=== PATIENT | male | born 1965 | race African-American/Black ===

== ENCOUNTER 2019-12-06 01:41 | Inpatient (IN) | payer MEDICAID ==
[~2019-12-06] VITALS: Ht 182.9 cm; Wt 85.0 kg
[~2019-12-06 01:41] MED LIST: FURO-151 PO
[2019-12-06] MEDS ORDERED: DEXTROSE 50% WATER 50ML SYRINGE IV ONE ×3 (02:31→04:30)
[2019-12-06] MEDS ORDERED: ONDANSETRON HCL 4MG/2ML INJ IV ONE (03:00)
[2019-12-06 03:13] LABS: HEMOGLOBIN 15.4 g/dL (14.0-18.0); MEAN CORPUSCULAR HEMOGLOBIN 29.2 pg (28.0-32.0); MEAN CORPUSCULAR VOLUME 92.8 fL (80.0-94.0); PLATELET 361 x1000/uL (130-400); RED BLOOD CELL COUNT 5.28 mill/uL (4.7-6.1); RED CELL DISTRIBUTION WIDTH 19.4 % (11.6-14.6)
[2019-12-06 03:14] LABS: CHLORIDE 99 mEq/L (98-107)
[2019-12-06] MEDS ORDERED: FUROSEMIDE 100MG/10ML VIAL IV SCH (04:24)
[2019-12-06] MEDS ORDERED: INSULIN REGULAR (HUMULIN R) 300UNITS/3ML IV SCH ×2 (04:30→06:28)
[2019-12-06] MEDS ORDERED: ALBUTEROL (0.083%) 2.5MG/3ML NEB HHN SCH (04:30)
[2019-12-06] MEDS ORDERED: SODIUM BICARBONATE 8.4% 1 MEQ/ML 50ML SYR IV SCH (04:30)
[2019-12-06] MEDS ORDERED: CALCIUM CHLORIDE 1GM/10ML SYR IV SCH (04:30)
[2019-12-06 11:26] LABS: AMYLASE 101 IU/L (25-115)
[2019-12-06] MEDS ORDERED: CLONIDINE 0.1MG TABLET PO PRN (15:00)
[2019-12-06] MEDS ORDERED: IPRATROPIUM/ALBUTEROL 0.5-3(2.5)MG/3ML NEB NEB PRN (15:00)
[2019-12-06] MEDS ORDERED: ONDANSETRON HCL 4MG/2ML INJ IV PRN (15:00)
[2019-12-06] MEDS ORDERED: CEFTRIAXONE 1 G PREMIX 50 ML IV NR (16:00)
[2019-12-06] MEDS ORDERED: FOLIC ACID 1 MG, THIAMINE HCL 100 MG, MVI, ADULT NO.1 10 ML in DEXTROSE 5% WATER 1,000 ML IV ONE ×4 (17:00)
[2019-12-06 19:05] LABS: CHLORIDE 99 mEq/L (98-107)
[2019-12-06 19:13] LABS: CREATINE KINASE 108 IU/L (39-308)
[2019-12-06 20:30] VITALS: BP 144/103
[2019-12-06] MEDS ORDERED: ENOXAPARIN 40MG/0.4ML SYR SUBCUT SCH (21:00)
[2019-12-06] MEDS ORDERED: ZOLPIDEM TARTRATE 5MG TABLET PO PRN (21:00)
[2019-12-06] MEDS: AMLODIPINE 5MG TABLET PO SCH (22:17)
[2019-12-06] MEDS ORDERED: LISI40TA4 PO (22:19)
[2019-12-06] MEDS ORDERED: ALBUTEROL INH (22:20)
[2019-12-06 22:30] VITALS: BP 144/103
[2019-12-07] VITALS: BP 138/91
[2019-12-07] MEDS ORDERED: DEXTROSE 50% WATER 50ML SYRINGE IV PRN (02:15)
[2019-12-07] MEDS: BLOOD SUGAR DIAGNOSTIC STRIP TEST SCH ×3 (06:19→16:40)
[2019-12-07] MEDS: INSULIN LISPRO 100 UNITS/ML SUBCUT SCH ×3 (06:54→16:40)
[2019-12-07 07:21] LABS: BASOPHILS % 0.7 % (0.0-2.0); EOSINOPHILS % 0.8 % (0.0-5.0); HEMATOCRIT. 40.4 % (42.0-52.0); HEMOGLOBIN. 13.2 g/dL (14.0-18.0); LYMPHOCYTES % 10.4 % (20.0-50.0); MEAN CORPUSCULAR HEMOGLOBIN 29.5 pg (28.0-32.0); MEAN CORPUSCULAR VOLUME 90.3 fL (80.0-94.0); MEAN PLATELET VOLUME 8.9 fl (7.4-10.4); MONOCYTES % 3.7 % (2.0-8.0); NEUTROPHILS % 84.4 % (40.0-76.0); PLATELET 258 x1000/uL (130-400); RED BLOOD CELL COUNT 4.47 mill/uL (4.7-6.1); RED CELL DISTRIBUTION WIDTH 19.7 % (11.6-14.6)
[2019-12-07 07:25] LABS: CHLORIDE 100 mEq/L (98-107)
[2019-12-07 07:32] LABS: CREATINE KINASE 82 IU/L (39-308)
[2019-12-07 08:00] VITALS: BP 137/105
[2019-12-07 08:52] LABS: CLARITY URINE CLEAR (CLEAR); COLOR URINE DK YELLOW (YELLOW); KETONES URINE NEGATIVE (NEGATIVE); LEUKOCYTE ESTERASE URINE NEGATIVE (NEGATIVE); NITRITE URINE NEGATIVE (NEGATIVE); OCCULT BLOOD URINE NEGATIVE (NEGATIVE); PH URINE 6.5 (4.5-8.0); PROTEIN URINE 1+ (NEGATIVE); SPECIFIC GRAVITY URINE 1.017 (1.005-1.030)
[2019-12-07 09:11] LABS: *AMPHETAMINES SCREEN URINE NEGATIVE (NEGATIVE); *BARBITURATES SCREEN URINE NEGATIVE (NEGATIVE)
[2019-12-07 09:12] LABS: *BENZODIAZEPINES SCREEN URINE NEGATIVE (NEGATIVE); *COCAINE SCREEN URINE PRESUMTIVE POSITIVE (NEGATIVE); METHADONE URINE SCREEN NEGATIVE (NEGATIVE); OPIATES URINE SCREEN NEGATIVE (NEGATIVE); PHENCYCLIDINE URINE SCREEN NEGATIVE (NEGATIVE)
[2019-12-07 09:13] LABS: CANNABINOID URINE SCREEN NEGATIVE (NEGATIVE)
[2019-12-07] MEDS: AMLODIPINE 5MG TABLET PO SCH (09:35)
[2019-12-07 12:00] VITALS: BP 103/74
[2019-12-07] MEDS ORDERED: INFLUENZA VIRUS VACCINE(AFLURIA) 0.5ML SYR IM ONE (12:00)
[2019-12-07] MEDS ORDERED: PNEUMOCOCCAL 23-VAL P-SAC VAC 0.5 ML IM ONE (12:00)
[2019-12-07] MEDS ORDERED: CEFTRIAXONE 1 G PREMIX 50 ML IV SCH (13:00)
[2019-12-07 16:00] VITALS: BP 144/89
[2019-12-07 17:23] VITALS: BP 144/89
[2019-12-08] MEDS ORDERED: CEFTRIAXONE 1,000 MG in DEXTROSE 5% WATER 50 ML IV SCH (13:00)
== END 2019-12-07 18:22 | disposition home or self-care (01) | DRG 469 ==
LOC: ER 01:41 → 5WST 04:35 → ENRESERV 19:31
PROVIDERS: ADMIT Internal Medicine; ATTEND Internal Medicine
DX: N17.0 Acute kidney failure with tubular necrosis (principal); E87.2 Acidosis; G90.8 Other disorders of autonomic nervous system; I11.0 Hypertensive heart disease with heart failure; I50.20 Unspecified systolic (congestive) heart failure; M62.82 Rhabdomyolysis; E87.1 Hypo-osmolality and hyponatremia; E87.5 Hyperkalemia; E16.2 Hypoglycemia, unspecified; R74.8 Abnormal levels of other serum enzymes; F12.10 Cannabis abuse, uncomplicated; F14.10 Cocaine abuse, uncomplicated; R74.0 Nonspecific elevation of levels of transaminase and lactic acid dehydrogenase [LDH]; K31.89 Other diseases of stomach and duodenum; Y90.9 Presence of alcohol in blood, level not specified; K29.70 Gastritis, unspecified, without bleeding; I16.0 Hypertensive urgency; Z79.84 Long term (current) use of oral hypoglycemic drugs; Z79.899 Other long term (current) drug therapy; Z71.41 Alcohol abuse counseling and surveillance of alcoholic; Z71.51 Drug abuse counseling and surveillance of drug abuser; F10.20 Alcohol dependence, uncomplicated
CPT/HCPCS: 36415; 74176; 76700; 80048; 80053; 80305; 81003; 82150; 82550; 82962; 83036; 83735; 85025; 85027; 90686; 90732; 93005; 93306; 93970; 96374; 99285; J0696; J1650; J1815; J1940; J2405; J3411; J3490; J7060; J7070

== ENCOUNTER 2019-12-28 15:58 | Inpatient (IN) | payer MEDICAID ==
[~2019-12-28] VITALS: Ht 182.9 cm; Wt 88.5 kg
[~2019-12-28 15:58] MED LIST changes: +ALBUTEROL INH; +LISI40TA4 PO
[2019-12-28] MEDS ORDERED: ONDANSETRON HCL 4MG/2ML INJ IV STA (16:48)
[2019-12-28] MEDS ORDERED: FAMOTIDINE 20MG/2ML VIAL IV STA (16:48)
[2019-12-28] MEDS ORDERED: MORPHINE SULFATE 4 MG/ML CPJ (NOT FOR IM USE) IV STA (16:48)
[2019-12-28 17:27] LABS: BASOPHILS % 0.5 % (0.0-2.0); EOSINOPHILS % 0.1 % (0.0-5.0); HEMATOCRIT. 44.5 % (42.0-52.0); HEMOGLOBIN. 14.7 g/dL (14.0-18.0); LYMPHOCYTES % 7.7 % (20.0-50.0); MEAN CORPUSCULAR HEMOGLOBIN 29.8 pg (28.0-32.0); MEAN CORPUSCULAR VOLUME 90.2 fL (80.0-94.0); MEAN PLATELET VOLUME 8.8 fl (7.4-10.4); MONOCYTES % 3.1 % (2.0-8.0); NEUTROPHILS % 88.6 % (40.0-76.0); PLATELET 281 x1000/uL (130-400); RED BLOOD CELL COUNT 4.93 mill/uL (4.7-6.1); RED CELL DISTRIBUTION WIDTH 21.5 % (11.6-14.6)
[2019-12-28 17:30] LABS: CHLORIDE 102 mEq/L (98-107)
[2019-12-28 17:33] LABS: INR 1.2; PROTHROMBIN TIME 12.7 sec (9.6-11.0)
[2019-12-28 17:34] LABS: ETHANOL BLOOD < 10 mg/dL
[2019-12-28 18:06] LABS: COLOR URINE ORANGE (YELLOW); KETONES URINE TRACE (NEGATIVE); LEUKOCYTE ESTERASE URINE 1+ (NEGATIVE); NITRITE URINE POSITIVE (NEGATIVE); OCCULT BLOOD URINE NEGATIVE (NEGATIVE); PH URINE 5.5 (4.5-8.0); PROTEIN URINE 3+ (NEGATIVE)
[2019-12-28 18:11] LABS: CLARITY URINE HAZY (CLEAR)
[2019-12-28 18:13] LABS: *AMPHETAMINES SCREEN URINE NEGATIVE (NEGATIVE)
[2019-12-28 18:14] LABS: *BARBITURATES SCREEN URINE NEGATIVE (NEGATIVE); *BENZODIAZEPINES SCREEN URINE NEGATIVE (NEGATIVE); *COCAINE SCREEN URINE PRESUMTIVE POSITIVE (NEGATIVE); METHADONE URINE SCREEN NEGATIVE (NEGATIVE); OPIATES URINE SCREEN PRESUMTIVE POSITIVE (NEGATIVE); PHENCYCLIDINE URINE SCREEN NEGATIVE (NEGATIVE)
[2019-12-28] MEDS ORDERED: PIPERACILLIN/TAZ 3.375G PREMIX 50 ML IV ONE (18:15)
[2019-12-28 18:16] LABS: CANNABINOID URINE SCREEN NEGATIVE (NEGATIVE)
[2019-12-28 21:30] VITALS: BP 147/110
[2019-12-28] MEDS ORDERED: MAGNESIUM/ALUMINUM HYDROXIDE/SIMETHICONE 30ML UDC PO PRN (21:30)
[2019-12-28] MEDS ORDERED: PIPERACILLIN/TAZ 3.375G PREMIX 50 ML IV SCH (21:30)
[2019-12-28] MEDS ORDERED: HYDROCODONE/ACETAMINOPHEN 5/325MG TABLET PO PRN (21:30)
[2019-12-28] MEDS ORDERED: ACETAMINOPHEN 325MG TABLET PO PRN (21:30)
[2019-12-28] MEDS ORDERED: CLONIDINE 0.1MG TABLET PO PRN (21:30)
[2019-12-28] MEDS ORDERED: IPRATROPIUM/ALBUTEROL 0.5-3(2.5)MG/3ML NEB NEB PRN (21:30)
[2019-12-28] MEDS ORDERED: DOCUSATE SODIUM 100MG CAPSULE PO PRN (21:30)
[2019-12-28] MEDS ORDERED: ONDANSETRON HCL 4MG/2ML INJ IV PRN (21:30)
[2019-12-28] MEDS: ENOXAPARIN 40MG/0.4ML SYR SUBCUT SCH (21:57)
[2019-12-29] VITALS: BP 139/95
[2019-12-29 00:22] LABS: CHLORIDE 104 mEq/L (98-107)
[2019-12-29 00:31] LABS: CREATINE KINASE 52 IU/L (39-308)
[2019-12-29 00:33] LABS: CREATINE KINASE MB FRACTION 1.5 ng/mL (0.5-3.6)
[2019-12-29] MEDS: PIPERACILLIN/TAZOBACTAM 3.375 G in DEXT 5% WATER 100 ML IV SCH ×2 (00:33→05:49)
[2019-12-29 04:00] VITALS: BP 100/80
[2019-12-29 07:22] LABS: BASOPHILS % 0.8 % (0.0-2.0); EOSINOPHILS % 0.7 % (0.0-5.0); HEMATOCRIT. 40.5 % (42.0-52.0); HEMOGLOBIN. 13.1 g/dL (14.0-18.0); LYMPHOCYTES % 12.9 % (20.0-50.0); MEAN CORPUSCULAR HEMOGLOBIN 29.3 pg (28.0-32.0); MEAN CORPUSCULAR VOLUME 90.7 fL (80.0-94.0); MEAN PLATELET VOLUME 8.8 fl (7.4-10.4); MONOCYTES % 4.7 % (2.0-8.0); NEUTROPHILS % 80.9 % (40.0-76.0); PLATELET 233 x1000/uL (130-400); RED BLOOD CELL COUNT 4.47 mill/uL (4.7-6.1); RED CELL DISTRIBUTION WIDTH 20.6 % (11.6-14.6)
[2019-12-29 08:00] VITALS: BP 115/97
[2019-12-29 08:05] LABS: CREATINE KINASE MB FRACTION 1.4 ng/mL (0.5-3.6)
[2019-12-29 12:00] VITALS: BP 120/88
[2019-12-29] MEDS: LISINOPRIL 40MG TABLET PO SCH (13:58)
[2019-12-29] MEDS: FUROSEMIDE 40MG TABLET PO SCH (13:58)
[2019-12-29] MEDS ORDERED: MAGNESIUM 4 G PREMIX 100 ML IV SCH (15:00)
[2019-12-29 16:00] VITALS: BP 129/84
[2019-12-29 16:58] LABS: HEPATITIS B SURFACE ANTIGEN NEGATIVE
[2019-12-29 17:27] LABS: HEPATITIS A AB IGM NEGATIVE (NEGATIVE)
[2019-12-29 20:00] VITALS: BP 124/94
[2019-12-29] MEDS: ENOXAPARIN 40MG/0.4ML SYR SUBCUT SCH (21:59)
[2019-12-30] VITALS: BP 130/97
[2019-12-30 04:00] VITALS: BP 130/97
[2019-12-30 08:00] VITALS: BP 128/99
[2019-12-30] MEDS: FUROSEMIDE 40MG TABLET PO SCH (08:59)
[2019-12-30] MEDS: LISINOPRIL 40MG TABLET PO SCH (09:00)
[2019-12-30 12:04] VITALS: BP 132/99
[2019-12-30 12:05] VITALS: BP 132/99
[2019-12-31 04:11] LABS: HIV SCREEN 4G Non Reactive (Non Reactive)
== END 2019-12-30 13:40 | disposition home or self-care (01) | DRG 249 ==
LOC: ER 15:58 → EDBEDREQTM 19:37 → EDBEDREQ 19:37 → ENRESERV 20:10 → 6EST 20:49
PROVIDERS: ADMIT Internal Medicine; ATTEND Internal Medicine
DX: K52.9 Noninfective gastroenteritis and colitis, unspecified (principal); I82.0 Budd-Chiari syndrome; E87.2 Acidosis; E46 Unspecified protein-calorie malnutrition; I11.0 Hypertensive heart disease with heart failure; I27.20 Pulmonary hypertension, unspecified; I50.22 Chronic systolic (congestive) heart failure; E83.42 Hypomagnesemia; R65.10 Systemic inflammatory response syndrome (SIRS) of non-infectious origin without acute organ dysfunction; F10.10 Alcohol abuse, uncomplicated; I25.10 Atherosclerotic heart disease of native coronary artery without angina pectoris; Y90.9 Presence of alcohol in blood, level not specified; D64.9 Anemia, unspecified; N39.0 Urinary tract infection, site not specified; F14.10 Cocaine abuse, uncomplicated; K70.9 Alcoholic liver disease, unspecified; K57.90 Diverticulosis of intestine, part unspecified, without perforation or abscess without bleeding; Z88.8 Allergy status to other drugs, medicaments and biological substances; Z72.0 Tobacco use; Z79.84 Long term (current) use of oral hypoglycemic drugs; Z79.899 Other long term (current) drug therapy; Z86.718 Personal history of other venous thrombosis and embolism; Z68.26 Body mass index [BMI] 26.0-26.9, adult; Z71.41 Alcohol abuse counseling and surveillance of alcoholic
CPT/HCPCS: 36415; 71045; 74176; 76705; 80048; 80053; 80061; 80076; 80305; 80320; 81003; 82105; 82248; 82550; 82553; 83036; 83605; 83735; 84443; 84484; 85025; 86705; 86709; 86803; 87340; 87389; 93005; 93970; 96365; 99285; J1650; J2270; J2405; J2543; J3475; J3490; J7060; G0480

== ENCOUNTER 2021-05-11 13:25 | Inpatient (IN) | payer MEDICAID, OTHER ==
[~2021-05-11] VITALS: Ht 175.3 cm; Wt 90.0 kg
[~2021-05-11 13:25] MED LIST changes: +COR3 PO; +FURO40TA5 PO; +LISI10TA26 PO; +LISI40TA13 PO; -LISI40TA4 PO; +METO2.5T2 PO
[2021-05-11 14:14] LABS: HEMATOCRIT. 37.3 % (42.0-52.0); HEMOGLOBIN. 12.1 g/dL (14.0-18.0); MEAN CORPUSCULAR HEMOGLOBIN 30.1 pg (28.0-32.0); MEAN CORPUSCULAR VOLUME 92.4 fL (80.0-94.0); MEAN PLATELET VOLUME 7.9 fl (7.4-10.4); PLATELET 369 x1000/uL (130-400); RED BLOOD CELL COUNT 4.03 mill/uL (4.7-6.1); RED CELL DISTRIBUTION WIDTH 16.5 % (11.6-14.6)
[2021-05-11 14:19] LABS: CHLORIDE 103 mEq/L (98-107)
[2021-05-11 14:23] LABS: INR 1.1; PARTIAL THROMBOPLASTIN TIME 31.4 sec (23.4-31.0); PROTHROMBIN TIME 12.1 sec (9.6-11.0)
[2021-05-11 14:24] LABS: ETHANOL BLOOD < 10 mg/dL
[2021-05-11 15:56] LABS: PLATELET ESTIMATE NORMAL
[2021-05-11] MEDS: ASPIRIN 81MG TABLET PO SCH (16:15)
[2021-05-11] MEDS: FUROSEMIDE 40MG/4ML VIAL IVP SCH (17:00)
[2021-05-11] MEDS: CARVEDILOL 3.125 MG TABLET PO SCH (17:00)
[2021-05-11] MEDS ORDERED: ATORVASTATIN CALCIUM 40MG TABLET PO SCH (21:00)
[2021-05-11 22:25] LABS: *BENZODIAZEPINES SCREEN URINE NEGATIVE (NEGATIVE); CANNABINOID URINE SCREEN NEGATIVE (NEGATIVE)
[2021-05-11 22:26] LABS: *AMPHETAMINES SCREEN URINE NEGATIVE (NEGATIVE); *BARBITURATES SCREEN URINE NEGATIVE (NEGATIVE); *COCAINE SCREEN URINE PRESUMTIVE POSITIVE (NEGATIVE); METHADONE URINE SCREEN NEGATIVE (NEGATIVE); OPIATES URINE SCREEN NEGATIVE (NEGATIVE); PHENCYCLIDINE URINE SCREEN NEGATIVE (NEGATIVE)
[2021-05-11] MEDS ORDERED: ACETAMINOPHEN 325MG TABLET PO PRN (22:30)
[2021-05-11] MEDS ORDERED: ENOXAPARIN 40MG/0.4ML SYR SUBCUT SCH (23:00)
[2021-05-12 06:38] LABS: HEMATOCRIT. 35.4 % (42.0-52.0); HEMOGLOBIN. 11.6 g/dL (14.0-18.0); MEAN CORPUSCULAR HEMOGLOBIN 29.8 pg (28.0-32.0); MEAN CORPUSCULAR VOLUME 90.7 fL (80.0-94.0); MEAN PLATELET VOLUME 7.4 fl (7.4-10.4); PLATELET 379 x1000/uL (130-400); RED BLOOD CELL COUNT 3.91 mill/uL (4.7-6.1); RED CELL DISTRIBUTION WIDTH 15.8 % (11.6-14.6)
[2021-05-12 06:45] LABS: CHLORIDE 106 mEq/L (98-107)
[2021-05-12] MEDS: FUROSEMIDE 40MG/4ML VIAL IVP SCH ×2 (09:00→17:23)
[2021-05-12] MEDS: CARVEDILOL 3.125 MG TABLET PO SCH ×2 (09:00→17:00)
[2021-05-12] MEDS: ASPIRIN 81MG TABLET PO SCH (09:00)
[2021-05-12 11:15] VITALS: BP 122/72
[2021-05-12 14:00] VITALS: BP 112/82
[2021-05-12 14:14] LABS: PLATELET ESTIMATE NORMAL
[2021-05-12 16:00] VITALS: BP 117/79
[2021-05-12 18:00] VITALS: BP 112/69
[2021-05-12 18:45] VITALS: BP 112/71
== END 2021-05-12 19:15 | disposition home or self-care (01) | DRG 194 ==
LOC: ER 13:25 → 3WST 14:43 → EDBEDREQSVC 14:46 → EDBEDREQ 14:46 → ENRESERV 20:30
PROVIDERS: ADMIT Internal Medicine; ATTEND Internal Medicine
PROC: 0W9G3ZZ Drainage of Peritoneal Cavity, Percutaneous Approach (ICD-10-PCS; principal; 2021-05-12)
DX: I11.0 Hypertensive heart disease with heart failure (principal); J96.01 Acute respiratory failure with hypoxia; I47.2 Ventricular tachycardia; R18.8 Other ascites; R65.10 Systemic inflammatory response syndrome (SIRS) of non-infectious origin without acute organ dysfunction; E44.1 Mild protein-calorie malnutrition; I42.0 Dilated cardiomyopathy; K74.60 Unspecified cirrhosis of liver; D64.9 Anemia, unspecified; I50.23 Acute on chronic systolic (congestive) heart failure; E78.5 Hyperlipidemia, unspecified; E83.42 Hypomagnesemia; F10.10 Alcohol abuse, uncomplicated; F14.10 Cocaine abuse, uncomplicated; G89.29 Other chronic pain; I07.1 Rheumatic tricuspid insufficiency; I25.10 Atherosclerotic heart disease of native coronary artery without angina pectoris; I25.5 Ischemic cardiomyopathy; I49.3 Ventricular premature depolarization; J44.9 Chronic obstructive pulmonary disease, unspecified; Z20.822 Contact with and (suspected) exposure to COVID-19; Z82.49 Family history of ischemic heart disease and other diseases of the circulatory system; Z86.73 Personal history of transient ischemic attack (TIA), and cerebral infarction without residual deficits; Z91.14 Patient's other noncompliance with medication regimen; Z79.899 Other long term (current) drug therapy; Z71.51 Drug abuse counseling and surveillance of drug abuser; Z68.29 Body mass index [BMI] 29.0-29.9, adult
CPT/HCPCS: 36415; 49083; 71045; 76705; 80048; 80053; 80305; 80320; 83735; 83880; 84484; 85025; 87426; 93005; 93306; 93923; 99291; J1940; G0480

== ENCOUNTER 2021-08-11 13:27 | Emergency (ER) | payer MEDICAID, OTHER ==
[~2021-08-11] VITALS: Ht 177.8 cm; Wt 73.0 kg
[2021-08-11 14:48] LABS: HEMOGLOBIN. 12.3 g/dL (14.0-18.0); MEAN CORPUSCULAR HEMOGLOBIN 29.6 pg (28.0-32.0); MEAN CORPUSCULAR VOLUME 93.6 fL (80.0-94.0); MEAN PLATELET VOLUME 8.9 fl (7.4-10.4); PLATELET 379 x1000/uL (130-400); RED BLOOD CELL COUNT 4.16 mill/uL (4.7-6.1); RED CELL DISTRIBUTION WIDTH 18.2 % (11.6-14.6)
[2021-08-11 14:54] LABS: CHLORIDE 103 mEq/L (98-107)
[2021-08-11 15:08] LABS: PLATELET ESTIMATE NORMAL
[2021-08-11] MEDS ORDERED: FUROSEMIDE 40MG/4ML VIAL IV ONE (15:45)
[2021-08-11] MEDS ORDERED: ASPIRIN 81MG TABLET PO ONE (15:45)
[2021-08-11 18:45] VITALS: BP 119/95
== END 2021-08-11 19:07 | disposition short-term general hospital (02) ==
LOC: ER 13:27 → EDBEDREQ 15:54 → EDBEDREQTM 15:54 → ER 19:07 → CANBEDREQ 19:26
DX: I50.9 Heart failure, unspecified (principal); R18.8 Other ascites; F12.10 Cannabis abuse, uncomplicated; Z87.891 Personal history of nicotine dependence; J44.9 Chronic obstructive pulmonary disease, unspecified; Z79.899 Other long term (current) drug therapy; Z20.822 Contact with and (suspected) exposure to COVID-19
CPT/HCPCS: 36415; 71045; 80053; 83690; 83880; 84484; 85025; 87426; 93005; 96374; 99291; J1940